=== PATIENT | female | born 1950 | race Caucasian/White ===

== ENCOUNTER → 2023-12-29 16:22 | Outpatient (REF) | payer MEDICARE, OTHER, SELFPAY | LOC: HWWDC 16:22 | PROVIDERS: ATTENDING PHYSICIAN Nurse Practitioner Family | DX: Z12.31 Encounter for screening mammogram for malignant neoplasm of breast (principal) | CPT/HCPCS: 77063; 77067 ==

== ENCOUNTER 2024-04-01 05:55 | Day surgery (SDC) | payer MEDICARE, OTHER, SELFPAY ==
[2024-03-12 10:50] LABS: Hematocrit 39.7 % (37.0-47.0); Hemoglobin 12.9 g/dL (12.0-16.0); Mean Corp Hgb Conc. 32.5 g/dL (33.0-37.0); Mean Corpuscular Hgb 28.5 pg (27.0-31.0); Mean Corpuscular Volume 87.8 fL (81.0-99.0); Mean Platelet Volume 10.1 fL (7.4-10.4); Platelet Count 317 10^3/uL (130-400); Red Blood Cell Count 4.52 10^6/uL (4.20-5.40); Red Cell Dist. Width 13.4 % (11.5-14.5); White Blood Cell Count 7.4 10^3/uL (4.8-10.8)
[2024-03-12 11:12] LABS: ALT (SGPT) 18 U/L (0-35); AST (SGOT) 19 U/L (14-36); Albumin 4.7 g/dl (3.5-5.0); Alkaline Phosphatase 81 U/L (38-126); Blood Urea Nitrogen 20 mg/dl (7-17); Carbon Dioxide 29 mmol/L (22-30); Chloride 98 mmol/L (98-107); Glucose 109 mg/dl (70-99); Sodium 137 mmol/L (135-145); Total Bilirubin 1.1 mg/dl (0.2-1.3); Total Protein 7.6 g/dl (6.3-8.2); eGFR > 60.00
[2024-03-12 11:39] LABS: Glycohemoglobin (HgbA1c) 5.7 % (4.0-5.6)
[2024-03-12 12:49] VITALS: BMI 36.4
[2024-03-12 15:38] VITALS: BMI 36.4
--- NOTE | 2024-03-19 12:28 | VNURNOTE ---
Patient is scheduled for an elective L TKA on 04/01/24- she is a same day patient with Dr Dawkins. Spoke with patient prior to surgery. Introduced role of [facility] Liaison. Patient reports that she lives with her spouse in a [facility].
There are 5 steps to enter and a flight of steps to the second floor.
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 She has a shower chair, crutches, commode, cane and rolling walker.
Her spouse had [facility] services after his knee surgery with [facility].
PCP is Leticia Gandhi
Discussed [facility] joint protocol and post surgical plans.
Reviewed that she will have VN services initially and will then start outpatient PT.
Patient selects [facility] for home care needs and will go to [facility] on [facility] for outpatient PT. Scheduled for 04/04.
Patient is in agreement with plan and states that her spouse will be home with her. Advised to bring RW with her day of surgery. Referral placed in [facility].
Plan: [facility] per [facility] joint protocol 04/01 then outpt PT on 04/04
[2024-04-01] VITALS (10 sets, daily range): BP systolic 105–160; BP diastolic 48–92; BMI 36.4
[2024-04-01] MEDS: CELEBREX 200 MG PO (06:32)
[2024-04-01] MEDS: TYLENOL 650 MG PO (06:32)
[2024-04-01] MEDS: NORMOSOL-R/PLASMALYTE-A 1000 IV (06:33)
[2024-04-01] MEDS: ANCEF 5 IV (10:55)
[2024-04-01] MEDS: ROXICODONE 5 MG PO (11:00)
== END 2024-04-01 12:10 | disposition home health service (06) ==
LOC: SDS 05:55
PROVIDERS: ATTENDING PHYSICIAN Specialist; FAMILY PHYSICIAN Nurse Practitioner Family; OTHER PHYSICIAN Physician Assistant
DX: M17.12 Unilateral primary osteoarthritis, left knee (principal); E66.9 Obesity, unspecified; Z68.36 Body mass index [BMI] 36.0-36.9, adult; I10 Essential (primary) hypertension; G47.33 Obstructive sleep apnea (adult) (pediatric); R73.03 Prediabetes; Z87.891 Personal history of nicotine dependence
CPT/HCPCS: 27447; 36415; 73560; 80053; 83036; 85027; 87070; 93005; 97162; C1713; C1776

== ENCOUNTER → 2025-01-06 09:58 | Outpatient (REF) | payer MEDICARE, OTHER, SELFPAY | LOC: HWWDC 09:58 | PROVIDERS: ATTENDING PHYSICIAN Nurse Practitioner Family | DX: Z12.31 Encounter for screening mammogram for malignant neoplasm of breast (principal) | CPT/HCPCS: 77063; 77067 ==